=== PATIENT | female | born 1955 | race Asian ===

== ENCOUNTER 2020-09-20 11:55 | Inpatient (IN) | payer OTHER ==
[~2020-09-20] VITALS: Ht 157.5 cm; Wt 68.0 kg
[2020-09-20 11:57] VITALS: BP 146/72
[2020-09-20] MEDS ORDERED: METFORMIN HCL500 M3 PO (12:03)
[2020-09-20] MEDS ORDERED: ALPHAGAN P5 ML OPHTHALMIC (12:03)
[2020-09-20] MEDS ORDERED: XALATAN2.5 M1 OPHTHALMIC (12:04)
[2020-09-20 12:13] LABS: ABSOLUTE NEUTROPHILS 6.2 thou/uL (1.4-8.2); BASOPHILS 1.1 % (0.0-2.0); EOSINOPHILS 1.9 % (0.0-3.0); HEMATOCRIT 42.2 % (37.0-47.0); HEMOGLOBIN 14.2 gm/dL (12.0-15.0); LYMPHOCYTES 15.9 % (24.0-44.0); MCH 32.2 pg (26.0-34.0); MCHC 33.8 g/dL (28.0-37.0); MCV 95.3 fL (80.0-100.0); PLATELET COUNT 241 thou/uL (150-400); POLYS 76.1 % (36.0-66.0); RBC 4.42 mil/uL (4.20-5.00); RDW 13.6 % (10.5-14.5); WBC 8.1 thou/uL (4.0-11.0)
[2020-09-20 12:23] LABS: CALCIUM 8.8 mg/dL (8.5-10.1); CREATININE 0.8 mg/dL (0.6-1.0); POTASSIUM 3.5 mmol/L (3.5-5.1)
[2020-09-20] MEDS ORDERED: ONDANSETRON HCL4 M2 PO (13:30)
[2020-09-20] MEDS ORDERED: ATIVAN0.5 M1 PO (13:30)
--- NOTE | 2020-09-20 14:05 | NUR ---
WHEN PT TRIED TO STAND UP FOR DC C/O DIZZINESS, PT TRIED TO STAND AND STARTED TO FALL OVER, PT SAT DOWN ON BED, PROVIDER INFORMED.
[2020-09-20 17:42] LABS: ALBUMIN 3.6 g/dL (3.4-5.0); TOTAL PROTEIN 7.3 g/dL (6.4-8.2)
[2020-09-20 17:55] VITALS: BP 144/68
[2020-09-20 18:13] VITALS: BP 114/45
[2020-09-20 20:12] VITALS: BP 121/55
--- NOTE | 2020-09-21 03:29 | NUR ---
PT CARE ASSUMED WITH PT IN BED FROM THE ER FOR ADMISSION.PT IS A/O X4.PT ADMITTED TO THE UNIT WITH VERTIGO,DIZZINESS SINCE COVID VAC ON THE 09/14.PT HAD A FALL AT HOME ON 09/20/20 AND HIT THE HEAD WITH NO LOC .PT DENIED HEADACHE .PT C/O PAIN ON LT ARM AT VACCINATION SITE.PT ON BEDREST AND WHEN TURNING IN BED C/O DIZZINESS.PT USES A BEDPAN.IV ACCESS ON LT HAND WITH NS AT 125CC/HR.PT IS DM 2 ON MERTFORMIN.PT IS ON A CARB CONTROL DIET.ADMISSION AND ASSESSMENT DONE .PT UNABLE TO SIGN CONSENT . WILL SIGN WHEN HE VISIT TODAY.WILL CONTINUE TO MONITOR PER POC
[2020-09-21 08:23] VITALS: BP 135/69
[2020-09-21 08:29] VITALS: BP 135/69
--- NOTE | 2020-09-21 15:25 | NUR ---
ASSUMED CARE OF PATIENT UPON SHIFT CHANGE; 0700. ASSESSMENT CHARTED. MEDICATION ADMINISTERED PER EMAR; METFORMIN HELD FOR BG OF 79 AND POOR NUTRITIONAL INTAKE DUE TO DIZZINESS. MECLIZINE ADMINISTERED NEEDED FOR DIZZINES. DENIES PAIN WHILE RESTING BUT DOES HAVE SOME DISCOMFORT ON SITE OF COVID VACCINE INJECTIONL; L ARM. PATIENT WANTING TO NAP THIS DAY TO "SLEEP OFF THE DIZZINESS". MRI TO BE COMPLETED FIRST THING TOMORROW 09/22/20 PER NEUROLOGY. SCREENING TOOL COMPLETE. PATIENT VOIDING PER BEDPAN STATING DIZZINESS ENTIRE TIME. SPOUSE AT BEDSIDE. WILL CONTINUE TO MONITOR AND FOLLOW PLAN OF CARE
[2020-09-21 16:10] VITALS: BP 100/48
[2020-09-21 19:30] VITALS: BP 111/53
[2020-09-21] MEDS ORDERED: DORZOLAMIDE 2%10 ML EA. EAR (19:35)
--- NOTE | 2020-09-22 00:07 | NUR ---
PT OBSERVED LYING ON HER BED WITH HER EYES CLOSED AT SHIFT [facility].PT CONT TO BE ON BEDREST DUE TO VERTIGO.PT PREFER TO USE BEDPAN TO MINIMIZE MOVEMENT.PT REQUESTED FOR AND RECEIVED ONE TYLENOL FOR PAIN.ROOM DARK PER PT'S REQUEST.CALL LIGHT WITHIN REACH.
--- NOTE | 2020-09-22 07:20 | EKG ---
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
--- NOTE | 2020-09-22 12:12 | NUR ---
PT ADMITTED RELATED TO VERTIGO, N/V, DIZZINESS. CM REVIEWED CHART AND SPOKE WITH CARE TEAM. CM MET WITH PT AND SPOKE AT BEDSIDE THIS DAY. PT APPEARED TO BE A&O X4. CM ROLE INTRODUCED. PT INDICATED SHE LIVES IN A HOUSE WITH HER SPOUSE WITH 3 STEPS TO ENTER THROUGH THE GARAGE AND A FULL FLIGHT TO BASEMENT. 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 PT INDICATED NO HH HX. PT STATED THAT SHE PLANS TO RETURN HOME ONCE MEDICALLY STABLE. CM TO FOLLOW INDICATED WITH DC PLANNING.
--- NOTE | 2020-09-22 16:09 | NUR ---
ASSUMED CARE OF PATIENT AT 0700. ASSESSMENT CHARTED. MEDICATIONS ADMINISTERED PER MAR ICLUDING EYE DROP; NEW EYE DROPS FOR 1200 ORDERED AND ADMINISTERED. PATIENT REMAINS A&OX4 AND VOICES NEEDS. STILL C/O CONSTANT STATE OF DIZZINESS. PATIENT LAYS FLAT W EYES CLOSED MOST OF SHIFT AND STATES SHE "EACH TIME I OPEN MY EYES AND MOVE THE ROOM SPINS" MRI COMPLETED THIS DAY; PENDING RESULTS. ACETAMINOPHEN ADMINISTERED FOR HEADACHE/SHOULDER PAIN ON L ARM NEEDED. ENCOURAGED TO TURN AND USE PILLOWS TO GET PRESSURE OFF BOTTOM AND BACK. FLUIDS CONTINUE TO INFUSE AT 125/HR. PATIENT IS VOIDING VERY FREQUENTLY USING THE BEDPAN. SPOUSE AT BEDSIDE. VOICING NO FUTHER NEEDS. WILL CONTINUE TO MONITOR AND FOLLOW PLAN OF CARE
[2020-09-22 16:23] LABS: CALCIUM 8.4 mg/dL (8.5-10.1); CREATININE 0.7 mg/dL (0.6-1.0); POTASSIUM 3.1 mmol/L (3.5-5.1)
[2020-09-22 19:24] VITALS: BP 125/60
--- NOTE | 2020-09-23 02:40 | NUR ---
PT CARE ASSUMED WITH PT IN BED RESTING AT 1900.PT IS A/O X4.PT IS ON BEDREST FOR SEVERE VERTIGO.PT USES A BEDPAN.PT C/O HEADACHE AND TYLENOL PRN GIVEN.PT IS ACCUCHECK ACHS WITH NO SSI.FALL PRECAUTION IN PLACE.WILL CONTINUE TO MONITOR PER POC
[2020-09-23 07:40] VITALS: BP 137/73
--- NOTE | 2020-09-23 12:18 | NUR ---
PT ALERT AND ORIENTED TIMES FOUR. VSS. PT CONTINUES TO C/O BEING DIZZY, BUT STIIL FEELS BETTER. PT DENIES PAIN/SOA. PT TOLERATES MEDS AND MEALS. PT WORKED WITH PT/OT TODAY. PT SLOWLY PROGRESSING [facility] POC GOALS.
--- NOTE | 2020-09-23 16:00 | NUR ---
ENT SAW PT AND MADE SOME RECOMENDATIONS FOR MEDIACTIONS. THEY INDICATED THEY WANT TO SEE PT IN OFFICE AN OUTPATIENT DAY AFTER DISCHARGE. PT WORKED WITH PT THIS AFTERNOON BUT COMPALINED OF CONTINUED NEASUA AND DIZZINESS. CM FOLLOWING REGARDING DC PLANNING.
[2020-09-23 18:20] VITALS: BP 121/62
[2020-09-23 20:21] VITALS: BP 126/60
--- NOTE | 2020-09-24 03:01 | NUR ---
ASSUMED CARE OF PT AT SHIFT CHANGE. PT AOX4 AND LETS NEEDS BE KNOWN. FALL PRECAUTION IN PLACE. PT ENCOURAGED TO USE BSC AND WAS AGREEABLE. PT REPORTS GETTING DIZZY WHEN GETTING UP. ASSESSMENT CHARTED. PT WAS ABLE OT GET COMFORTABLE AND SLEEP PART OF THE SHIFT. VSS AND NO S/S OF ACUTE DISTRESS. WILL CONTINUE TO MONITOR FOR CHANGES.
[2020-09-24 08:00] VITALS: BP 125/61
[2020-09-24] MEDS ORDERED: MECLIZINE HCL25 MG PO (11:36)
[2020-09-24] MEDS ORDERED: AMOX TR-K CLV1 EAC4 PO (11:36)
[2020-09-24] MEDS ORDERED: DIAZEPAM 5 MG5 M1 PO (11:36)
--- NOTE | 2020-09-24 11:46 | NUR ---
CARE TEAM INDICATED THAT PT IS MEDICALLY STABLE TO DC HOME THIS DAY. PT IS TO DC HOME TO SELF CARE WITH OP ENT FOLLOW UP. NO OTHER CM INTERVENTION INDICATED. PT'S SPOUSE TO PROVIDE TRANSPORT HOME. NO OTHER CM INTERVENTION INDICATED. CASE CLOSED.
[2020-09-24 12:08] VITALS: BP 126/60
--- NOTE | 2020-09-24 13:20 | NUR ---
Assumed pt care at 7am.Pt in bed resting and calls out for assist as needed. Assessment completed. vss.Dr Muse here. 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 Saline lock dc'd. At 1300,pt dc home per wc with spouse.
== END 2020-09-24 13:31 | disposition home or self-care (01) | DRG 149 ==
LOC: ER 11:55 → 4W 16:49 → EROBS 16:49 → 4W 18:15
PROVIDERS: Nurse Practitioner; Psychiatry & Neurology Neuromuscular Medicine; ADMIT Internal Medicine; ATTEND Internal Medicine
DX: H81.10 Benign paroxysmal vertigo, unspecified ear (principal); H83.09 Labyrinthitis, unspecified ear; H91.90 Unspecified hearing loss, unspecified ear; E11.9 Type 2 diabetes mellitus without complications; H40.9 Unspecified glaucoma; H93.19 Tinnitus, unspecified ear; Z79.84 Long term (current) use of oral hypoglycemic drugs
CPT/HCPCS: 10045; 10047